=== PATIENT | male | born 1960 | race Caucasian/White ===

== ENCOUNTER 2022-05-01 09:13 | Observation (INO) ==
--- NOTE | 2022-04-30 10:44 | EKG ---
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 Measurements Intervals [place] Rate: 69 P: 75 SC: 154 QRS: 60 QRSD: 84 T: 58 QT: 388 QTc: 415 Interpretive Statements Sinus rhythm Borderline ST elevation, anterolateral leads Tall T, consider metabolic/ischemic abnrm Electronically Signed On 04-30-2022 10:44:26 PST by Alena Diaz D.O. /[id number]
[2022-04-30 12:09] LABS: Basophils # (Auto) 0.03 K/mcL (0.00-0.30); Basophils % (Auto) 0.6 % (0.0-2.0); Eosinophils # (Auto) 0.19 K/mcL (0.00-0.70); Eosinophils % (Auto) 3.6 % (0.0-7.0); Hematocrit 41.1 % (40.1-51.0); Hemoglobin 13.8 g/dL (13.7-17.5); Lymphocytes # (Auto) 2.57 K/mcL (1.50-4.80); Lymphocytes % (Auto) 48.5 % (15.5-49.0); Mean Corpuscular HGB Conc 33.6 g/dL (31.0-36.0); Mean Platelet Volume 9.5 fL (8.8-12.5); Monocytes # (Auto) 0.77 K/mcL (0.10-0.90); Monocytes % (Auto) 14.5 % (1.0-12.0); Neutrophils % (Auto) 32.6 % (38.0-78.0); Platelet Count 248 K/mcL (140-440); RBC 4.28 M/mcL (4.63-6.08); Red Cell Distribution Width 13.1 % (11.5-14.5); WBC 5.3 K/mcL (4.5-11.0)
[2022-04-30 12:58] LABS: Blood Urea Nitrogen 9 mg/dL (8-23); Calcium 9.7 mg/dL (8.6-10.4); Carbon Dioxide 30 mmol/L (22-30); Chloride 102 mmol/L (96-108); Glomerular Filtration Rate 72; Glucose 99 mg/dL (70-105)
[~2022-05-01 09:13] MED LIST: ceFAZolin 2 GM in DEXTROSE 5% IN WATER 50 ML IV SCH
--- NOTE | 2022-05-01 11:47 | Operative Note ---
Brief Operative Note Date of procedure: 05/01/22 Pre-op diagnosis: Symptomatic umbilical hernia Post-op diagnosis: same Procedure: Robotic assisted umbilical hernia repair with mesh Grafts/Implants: Yes Anesthesia: GETA Findings: 2.5 x 2.5 cm umbilical defect, less than 5 mm supraumbilical defect Complications: none Surgeon: Lance Govea Estimated blood loss (cc): 10 Specimens Removed/Pathology: none sent Condition: stable Disposition: PACU
[2022-05-01] MEDS ORDERED: LIDOCAINE HCL/PF 100 MG/5 ML SYRINGE IV ONE ×2 (12:18→17:05)
[2022-05-01] MEDS ORDERED: KETOROLAC 30 MG/ML VIAL ONE ×2 (12:18→20:37)
[2022-05-01] MEDS ORDERED: ROCURONIUM 10 MG/ML ML IV ONE ×2 (12:18→17:05)
[2022-05-01] MEDS ORDERED: MIDAZOLAM 2 MG/2 ML VIAL ONE (12:18)
[2022-05-01] MEDS ORDERED: MAGNESIUM SULFATE 2 GM/50 ML BAG IV ONE ×2 (12:18→17:05)
[2022-05-01] MEDS ORDERED: ONDANSETRON 4 MG/2 ML VIAL ONE ×2 (12:18→17:05)
[2022-05-01] MEDS ORDERED: KETAMINE 50 MG/ML Syringe (ANEST) IV ONE ×2 (12:18→17:05)
[2022-05-01] MEDS ORDERED: DEXAMETHASONE 10 MG/ML VIAL ONE ×2 (12:18→17:05)
[2022-05-01] MEDS ORDERED: fentaNYL 100 MCG/2 ML VIAL IV ONE (12:18)
[2022-05-01] MEDS ORDERED: GLYCOPYRROLATE 0.2 MG/ML VIAL IV ONE (12:18)
[2022-05-01] MEDS ORDERED: PROPOFOL 200 MG/20 ML VIAL IV ONE ×2 (12:18→17:05)
[2022-05-01] MEDS ORDERED: SUCCINYLCHOLINE 20 MG/ML ML IV ONE (12:18)
[2022-05-01] MEDS ORDERED: SUGAMMADEX SODIUM 200 MG/2 ML VIAL IV ONE ×2 (12:18→17:05)
[2022-05-01] MEDS ORDERED: IPRATROPIUM/ALBUTEROL 3 ML AMPUL.NEB NEB PRN ×3 (12:44→17:42)
[2022-05-01] MEDS ORDERED: LIDOCAINE W/EPI 0.5% 50 ML VIAL IJ ONE (12:48)
[2022-05-01] MEDS ORDERED: BUPIVACAINE 0.25% 50 ML VIAL IJ ONE ×2 (12:48→16:56)
--- NOTE | 2022-05-01 13:01 | Operative Note ---
Brief Operative Note Date of procedure: 05/01/22 Pre-op diagnosis: Symptomatic left inguinal hernia Post-op diagnosis: same Procedure: Robotic assisted left inguinal hernia repair with mesh Grafts/Implants: Yes Anesthesia: GETA Findings: Small left direct inguinal hernia, cord lipoma Complications: none Surgeon: Lance Govea Estimated blood loss (cc): 10 Specimens Removed/Pathology: none sent Condition: stable Disposition: PACU Operative Note Operative Note: After all risk benefits and alternatives to the procedure were discussed with the patient at length he verbalized understanding and desire to continue with the procedure. Patient was taken to the operating room, placed upon operative table. General aesthesia was induced over endotracheal tube. Patient was prepped and draped in the standard sterile surgical fashion. Surgical timeout was taken to verify patient and procedure being performed. 1% lidocaine half percent Marcaine was used for local anesthesia. Right side incision was made and the abdominal cavity was entered under direct vision using an da Sharif 8 mm Optiviewi trocar. The abdominal cavity was insufflated carbon dioxide and visual inspection revealed no injuries. 8 mm supraumbilical and a 8 mm left sided trochars were then placed under direct vision. Patient was placed in a slight headdown position and visual inspection revealed small left inguinal hernia, no evidence of hernia on the right. The da Sharif robot was docked in the standard fashion. Attention was then turned to the left side where the peritoneum was entered the preperitoneal space was widely dissected to fully reduced a direct inguinal hernia back into the preperitoneal space. There was also a large cord lipoma which was reduced into the preperitoneal space with blunt and electrocautery dissection. The peritoneal dissection was carried out medially over the pubic tubercle laterally to ensure adequate room for the mesh and inferiorly down to the psoas muscle. All hernia spaces were inspected. A medium weight Bard 3D max mesh was then placed into the right sided space it laid flat on the anterior abdominal wall fully covering all hernia spaces. It was tacked into place with interrupted 3-0 Vicryl sutures and then the peritoneum was reapproximated to the anterior abdominal wall with a running 3 oh strata fix suture. Visual inspection revealed no further pathology. The da Sharif robot was undocked in the standard fashion. CO2 and trochars were removed under direct vision. Trocar sites were inspected with hemostasis. Skin edges were then closed with interrupted 4-0 Monocryl sutures and skin glue dressings were applied. Patient was then awakened from anesthesia transported postanesthesia care unit awake alert in good condition.
--- NOTE | 2022-05-01 13:02 | Discharge Summary ---
Discharge Provider Provider IMPORTANT FOLLOW-UP INFORMATION FOR PCP: Patient information: Note initiated : 05/01/22 at 1:01 pm Service Date, if different from initiated Date: [] Patient: Vinod Roy 62 y/o M admitted on for Robotic Assisted Left, Possible Bilateral Inguinal. Chief Complaint: [] Discharge date: 05/01/22 Primary care physician: Dave Nails PA-C COURSE Hospital Course Hospital course: Patient was admitted for and underwent an uneventful robotic left inguinal hernia repair with mesh Discharge diagnosis: Status post left inguinal hernia repair Time Spent with Patient Time attestation: Total time spent providing and/or coordinating discharge services: Time spent: Less than 30 minutes Physical Examination Vital Signs Vital signs: Temp Pulse Resp BP Pulse Ox O2 Del Method 97.8 F 58 L 16 122/67 97 05/01/22 09:31 05/01/22 09:31 05/01/22 09:31 05/01/22 09:31 05/01/22 09:31 05/01/22 09:31 Discharge Plan Patient/Caregiver Discharge Instructions Activity: increase activity as tolerated Diet: Regular Diet Activity Restrictions/Additional Instructions: Resume normal activity as tolerated, no weightlifting restrictions. May resume showering starting tonight. Follow-up with me in 2 to 3 weeks. Prescriptions: New ibuprofen 800 mg tablet 800 mg PO TID PRN (Reason: pain) Qty: 90 0RF acetaminophen [Tylenol 8 Hour] 650 mg tablet extended release 650 mg PO Q8H PRN (Reason: pain) Qty: 90 0RF oxycodone 5 mg tablet 5 mg PO Q6H PRN (Reason: pain) Qty: 5 0RF Continued sildenafil (pulm.hypertension) 20 mg tablet 20 mg PO ONCE Qty: 50 0RF Rx Instructions: administer doses at least 4-6 hours apart donepezil 5 mg tablet 5 mg PO QAM Qty: 90 1RF metoprolol tartrate 25 mg tablet 25 mg PO QAM Qty: 90 3RF hydrocodone-acetaminophen 10-325 mg tablet 1 tab PO Q4-6H PRN (Reason: Pain) Qty: 120 0RF Follow Up Plan Follow up with: Lance Govea MD [Physician] - 05/15/22 9:00 am Patient Disposition: Home, Self-Care Discharge Orders: Discharge Order (Routine); Ordered 05/01/22 Ordered By: Lance Govea Pending Pending Pending: Cefazolin Sodium 2 gm/ (Dextrose) 50 mls @ 100 mls/hr IV PREOP LIZZY Stop: 05/01/22 19:00 Last Admin: 05/01/22 12:15 Dose: 100 mls/hr Documented By: W1
[2022-05-01] MEDS ORDERED: ONDANSETRON 4 MG/2 ML VIAL IV PRN ×3 (13:40→18:02)
[2022-05-01] MEDS ORDERED: LACTATED RINGERS 250 ML IV PRN ×2 (13:40→17:42)
[2022-05-01] MEDS ORDERED: METHOCARBAMOL 1,000 MG/10 ML VIAL IV PRN (13:40)
[2022-05-01] MEDS ORDERED: FLUMAZENIL 0.1 MG/ML ML IV PRN (13:40)
[2022-05-01] MEDS ORDERED: ACETAMINOPHEN 1,000 MG/100 ML BAG IV ONE ×2 (13:40→17:42)
[2022-05-01] MEDS ORDERED: NALOXONE HCL 0.4 MG/ML VIAL IV PRN ×2 (13:40→17:42)
[2022-05-01] MEDS ORDERED: METOPROLOL TARTRATE 5 MG/5 ML VIAL IV PRN (13:40)
[2022-05-01] MEDS ORDERED: LABETALOL 5 MG/ML ML IV PRN (13:40)
[2022-05-01] MEDS ORDERED: MEPERIDINE 25 MG/ML VIAL IV PRN ×2 (13:40→17:42)
[2022-05-01] MEDS ORDERED: HYDROmorphone 0.5 MG/0.5 ML SYRINGE IV PRN (13:40)
[2022-05-01] MEDS ORDERED: LACTATED RINGERS 1,000 ML IV SCH ×2 (13:45→17:45)
[2022-05-01] MEDS: fentaNYL 100 MCG/2 ML VIAL IV PRN ×11 (13:45→18:55)
[2022-05-01] MEDS ORDERED: oxyCODONE HCL 5 MG TABLET PO SCH (14:48)
[2022-05-01 15:36] LABS: POC Calcium, Ionized 1.06 (1.16-1.32); POC Creatinine 1.3 (0.6-1.2); POC Potassium 3.9 (3.3-5.1)
[2022-05-01] MEDS ORDERED: LIDOCAINE 1% 20 ML VIAL SQ ONE (16:56)
[2022-05-01] MEDS ORDERED: HYDROmorphone 1 MG/ML SYRINGE ONE (17:05)
[2022-05-01] MEDS ORDERED: PROMETHAZINE 25 MG/ML VIAL IV PRN (17:42)
[2022-05-01] MEDS ORDERED: diphenhydrAMINE 50 MG/ML VIAL IV PRN (17:42)
[2022-05-01] MEDS ORDERED: IBUPROFEN 600 MG TABLET PO PRN (18:02)
[2022-05-01] MEDS ORDERED: ACETAMINOPHEN 325 MG TABLET PO PRN (18:02)
--- NOTE | 2022-05-01 18:02 | Operative Note ---
Brief Operative Note Date of procedure: 05/01/22 Pre-op diagnosis: Increased abdominal pain postop Post-op diagnosis: same Procedure: Exploratory laparoscopy converted to exploratory laparotomy with oversew of enterotomy x2 Grafts/Implants: No Anesthesia: GETA Findings: Trocar injury from prior surgery Complications: none Surgeon: Lance Govea Estimated blood loss (cc): 25 Specimens Removed/Pathology: none sent Condition: stable Disposition: PACU Operative Note Operative Note: Patient is status post robotic assisted left inguinal hernia repair with mesh. Postop after eating patient had excruciating abdominal pain which is out of proportion to his prior exam. Long discussion with patient about observation versus exploring laparoscopy had with him at length. He verbalized understanding and desire to continue with surgery. Patient was taken main operating placed supine operative table. General anesthesia was induced over endotracheal tube. Patient's prepped and draped in the standard sterile surgical fashion. Surgical timeout was taken to verify patient and procedure being performed. 1% lidocaine half percent Marcaine was used for local anesthesia. A prior left- sided incision was used and the abdominal cavity was entered under direct vision using a 5 mm Optiview trocar. Abdominal cavity was then insufflated carbon oxide and visual inspection revealed no injuries. A second 5 mm trocar was placed in the supraumbilical incision, exploration showed no hemoperitoneum, there was some fluid in the pelvis which appeared to be serous a third 5 mm trocar was placed on the right incision and the small bowel was inspected, there was a small amount of brownish material on part of the small bowel which was not explained by his prior operation therefore midline incision was made carried down through skin subtenons tissue and the abdominal cavity was entered. The small bowel was ran from the ligament of Treitz down to the terminal ileum there was a through and through small bowel trocar injury identified, there was no gross feculent contamination therefore the holes were closed with interrupted 3- 0 Vicryl sutures and canal sutures were placed. The small bowel was once again ran, there were several small mesenteric injuries which were also closed with interrupted 3-0 Vicryl sutures. Once again the small bowel was ran from the ligament of Treitz back down to the terminal ileum and no further injury were identified. The abdominal cavity was copiously irrigated with a liter of warmed normal saline. Further abdominal expiration showed no further injuries. The small bowel was returned to its anatomical position, the omentum was returned over the small bowel and the fascia was closed with a running looped 0 PDS suture. Skin edges were all closed with surgical swathi 4 x 4 and Tegaderm dressings were applied. Patient was then awakened from general anesthesia transported postanesthesia care unit awake alert in good condition.
--- NOTE | 2022-05-01 18:03 | XRay Report ---
CLINICAL INFORMATION: Sponge count COMPARISON: None. FINDINGS: The stool gas pattern is unremarkable. There is no free air, soft tissue mass, organomegaly or pathologic calcification. IMPRESSION: Normal abdomen. No sponge identified Interpreted and Authenticated by: Toro Palafox 05/01/22
[2022-05-01] MEDS: HYDROmorphone 0.5 MG/0.5 ML SYRINGE IV PRN ×3 (18:40→22:09)
[2022-05-01] MEDS: LACTATED RINGERS 1,000 ML IV SCH (19:05)
[2022-05-01] MEDS ORDERED: HYDROmorphone 0.5 MG/0.5 ML SYRINGE ONE (19:41)
[2022-05-01] MEDS: KETOROLAC 30 MG/ML VIAL IV SCH (20:40)
[2022-05-01] MEDS: oxyCODONE HCL 5 MG TABLET PO PRN (20:40)
[2022-05-02] MEDS: oxyCODONE HCL 5 MG TABLET PO PRN ×3 (00:57→12:40)
[2022-05-02] MEDS: HYDROmorphone 0.5 MG/0.5 ML SYRINGE IV PRN ×4 (00:58→11:36)
[2022-05-02] MEDS: KETOROLAC 30 MG/ML VIAL IV SCH ×2 (03:26→14:23)
[2022-05-02] MEDS: LACTATED RINGERS 1,000 ML IV SCH ×2 (04:52→07:15)
--- NOTE | 2022-05-02 08:20 | EKG ---
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
[2022-05-02] MEDS ORDERED: METOPROLOL TARTRATE 25 MG TABLET PO SCH (09:00)
--- NOTE | 2022-05-03 19:06 | Event Note ---
Event Note Event Note: 62-year-old male who had robotic assisted umbilical hernia repair on 01 May 2022. He had severe pain in the early postoperative period and was reevaluated endoscopically. He was found to have a small culture of the small bowel with some succus leak. He was converted to open and the small bowel was repaired p rimarily by Dr. Govea. He was observed overnight and seemed to do okay. He was discharged yesterday. The patient has contacted me 3 times today complaining of severe pain. He has been advised to be evaluated in the emergency room and I will see him if there are any abnormal findings. He states that he does not have a ride to the emergency room but he wants to have something done about the pain. He also describes having sweats and possible chills. He is advised to contact EMS and have them transport him to the emergency room but he refuses to do so. The patient is strongly advised to have evaluation in the emergency room since the clinics will not be open until Thursday. He states that he will try to tough the pain out. Review of his medications shows that he has problems with chronic pain. He had a prescription for hydrocodone 10/325 and was given 5 oxycodone 5 tablets at the time of discharge. Since these have not been effective he is advised that he needs to have evaluation in the emergency room to make sure that he is not having problems that can leave him critically ill. He still refuses to be seen in the emergency room. I have elected not to give him any more anal gesia because it might mask a more critical underlying problem. The patient is strongly advised to seek evaluation in the emergency room and I will consult on him at that time. As of 8:13 PM on 03 May 2022 he refuses to be seen in the emergency room.
== END 2022-05-02 17:25 | disposition home or self-care (01) ==
LOC: MEDSUR 09:13 → SUR 09:13 → MEDSUR 19:30
PROVIDERS: ADMIT Surgery; ATTEND Surgery